=== PATIENT | male | born 1950 | race Caucasian/White ===

== ENCOUNTER → 2024-04-18 | Outpatient (CLI) | payer MEDICARE, OTHER ==
--- NOTE | 2024-04-24 15:55 | HMCIMG ---
Exam Type: KNEE 3VWS LT Clinical Information: LEFT KNEE PAIN Comparison: None Findings: There is chondrocalcinosis. No fractures or dislocations are seen and the joint spaces are preserved. IMPRESSION: Chondrocalcinosis.
== END | disposition home or self-care (01) ==
LOC: RAH 15:50
PROVIDERS: ATTEND Family Medicine
DX: M11.262 Other chondrocalcinosis, left knee (principal); M25.562 Pain in left knee
CPT/HCPCS: 73562